=== PATIENT | female | born 1980 | race Hispanic/Latino ===

== ENCOUNTER 2017-11-20 05:37 | Observation (INO) | payer OTHER ==
[2017-11-19 11:45] VITALS: BP 107/67
[2017-11-19 12:07] LABS: BASOPHILS % (AUTO) 0.7 % (0.0-5.0); EOSINOPHILS % (AUTO) 2.1 % (0.0-8.0); HEMATOCRIT 40.3 % (36-48); MEAN CORPUSCULAR HEMOGLOBIN 29.7 pg (27.0-33.0); MEAN CORPUSCULAR HGB CONC 33.7 g/dL (32.0-36.0); MEAN CORPUSCULAR VOLUME 88.1 fL (79-99); MONOCYTES % (AUTO) 4.2 % (3.0-13.0); PLATELET COUNT (AUTO) 329 K/uL (130-400); RED BLOOD CELL COUNT(AUTO) 4.57 MIL/uL (4.00-5.50); WHITE BLOOD COUNT (AUTO) 7.8 K/uL (4.8-10.8)
[~2017-11-20] VITALS: Ht 154.9 cm; Wt 85.5 kg
[2017-11-20] VITALS (22 sets, daily range): BP systolic 91–118; BP diastolic 55–72
[2017-11-20] MEDS ORDERED: LACTATED RINGERS 1000ML 1,000 ML IV SCH (06:00)
[2017-11-20] MEDS: CEFAZOLIN SODIUM 1 GM VIAL IVP SCH ×2 (06:00→07:25)
[2017-11-20] MEDS ORDERED: PROPOFOL 10 MG/ML 20ML VIAL IV ONE (07:02)
[2017-11-20] MEDS ORDERED: LIDOCAINE PF 2% 5ML ABBOJECT ONE (07:02)
[2017-11-20] MEDS ORDERED: MIDAZOLAM HCL 1 MG/ML 2ML VIAL ONE (07:02)
[2017-11-20] MEDS ORDERED: ROCURONIUM BROMIDE 10MG/1ML 5ML VL ONE (07:02)
[2017-11-20] MEDS ORDERED: FENTANYL CITRATE PF 50 MCG/1 ML 5ML AMP IV ONE (07:03)
[2017-11-20] MEDS ORDERED: EPHEDRINE-NS PF 50MG/5ML SYRINGE IV ONE (07:28)
[2017-11-20] MEDS ORDERED: GLYCOPYRROLATE 0.2 MG/ML 5 ML VIAL ONE (07:31)
[2017-11-20] MEDS ORDERED: NEOSTIGMINE 5MG/5ML SYR IV ONE (07:31)
[2017-11-20] MEDS ORDERED: FENTANYL CITRATE PF 50 MCG/1 ML 2ML VIAL ONE (09:06)
[2017-11-20] MEDS ORDERED: MEPERIDINE-PF 50 MG/ML SYG ONE ×2 (09:31→09:39)
[2017-11-20] MEDS ORDERED: KETOROLAC TROMETHAMINE 30MG/ML ONE (09:49)
[2017-11-20] MEDS ORDERED: DOCUSATE SODIUM 100 MG CAP PO PRN (10:45)
[2017-11-20] MEDS ORDERED: ACETAMINOPHEN-CODEINE 300/30MG TAB PO PRN (10:45)
[2017-11-20] MEDS ORDERED: IBUPROFEN 600 MG TABLET PO PRN (10:45)
[2017-11-20] MEDS ORDERED: BISACODYL 10 MG SUPP.RECT RC PRN (10:45)
[2017-11-20] MEDS ORDERED: SIMETHICONE 80 MG TAB.CHEW PO PRN (10:45)
[2017-11-20] MEDS ORDERED: PROMETHAZINE HCL 25 MG/ML 1ML AMPULE IM PRN (10:45)
[2017-11-20] MEDS: MEPERIDINE-PF 75 MG/ML SYG IM PRN (13:03)
[2017-11-20] MEDS: PROMETHAZINE HCL 25 MG/ML 1ML AMPULE IM PRN ×2 (13:03→23:59)
[2017-11-20] MEDS: DEXTROSE 5 %-0.45 % NACL 1,000 ML IV PRN (18:59)
[2017-11-21] MEDS: MEPERIDINE-PF 75 MG/ML SYG IM PRN
[2017-11-21] MEDS: DEXTROSE 5 %-0.45 % NACL 1,000 ML IV PRN (02:44)
[2017-11-21 03:40] VITALS: BP 97/58
[2017-11-21 03:46] VITALS: BP 103/54
[2017-11-21 05:49] LABS: HEMATOCRIT 30.5 % (36-48); MEAN CORPUSCULAR HEMOGLOBIN 30.5 pg (27.0-33.0); MEAN CORPUSCULAR HGB CONC 34.2 g/dL (32.0-36.0); MEAN CORPUSCULAR VOLUME 89.2 fL (79-99); PLATELET COUNT (AUTO) 271 K/uL (130-400); RED BLOOD CELL COUNT(AUTO) 3.41 MIL/uL (4.00-5.50); RED CELL DISTRIBUTION WIDTH 13.1 % (11.0-15.5); WHITE BLOOD COUNT (AUTO) 10.4 K/uL (4.8-10.8)
[2017-11-21 07:47] VITALS: BP 90/52
[2017-11-21] MEDS ORDERED: ACETAMINOPHEN-CODEINE 300/30MG TAB PO PRN (08:15)
[2017-11-21] MEDS ORDERED: DOCUSATE SODIUM 100 MG CAP PO PRN (08:15)
[2017-11-21] MEDS ORDERED: HYDROCODONE/ACETAMINOPHEN 5/325 MG TAB PO PRN (08:15)
[2017-11-21] MEDS ORDERED: BISACODYL 10 MG SUPP.RECT RC PRN (08:15)
[2017-11-21] MEDS ORDERED: SIMETHICONE 80 MG TAB.CHEW PO PRN (08:15)
[2017-11-21] MEDS ORDERED: IBUPROFEN 800 MG TAB PO PRN (08:15)
[2017-11-21 11:25] VITALS: BP 94/49
== END 2017-11-21 14:25 | disposition home or self-care (01) ==
LOC: DAH 05:37 → DAHIP 05:38 → WSH 05:39
PROVIDERS: ADMIT Obstetrics & Gynecology; ATTEND Obstetrics & Gynecology
DX: N92.1 Excessive and frequent menstruation with irregular cycle (principal); D25.1 Intramural leiomyoma of uterus; N83.8 Other noninflammatory disorders of ovary, fallopian tube and broad ligament; N81.5 Vaginal enterocele; Z68.36 Body mass index [BMI] 36.0-36.9, adult
CPT/HCPCS: 36415 ×2; 57268; 58552; 85025; 85027; 86850; 86900; 86901; 88307; 96372 ×2; 96374; A4215; A4218; A4351; A4510; A4600; A4649 ×3; C1769 ×2; G0378 ×33; J0690; J1885; J2001; J2175 ×4; J2250; J2550 ×2; J2704; J2710; J3010 ×2; J3490 ×3; J7120 ×2